=== PATIENT | male | born 1950 | race Caucasian/White ===

== ENCOUNTER → 2016-09-02 | Day surgery (SDC) | payer MEDICARE, OTHER ==
[~2016-09-02] VITALS: Ht 167.6 cm; Wt 83.0 kg
[~2016-09-02] MED LIST: COREG12.5 MG PO; COUMADIN ** IA5 MG PO; CPAP INH; IRON325 M1 PO; LEVEMIR100 UNIT/1 SUB-Q; NORCO 5-325 TA1 EACH PO; NORVASC5 MG PO; NYSTATIN1 EAC1 TOP; PATADAY2.5 ML OPHTH; PRILOSEC20 MG PO; TIMOPTIC XE 0.5%5 ML OPHTH; VITAMIN B-1000 MCG/M SUB-Q; VITAMIN D1000 UNIT PO
--- NOTE | ~2016-09-02 | OR ---
PATIENT'S NAME: LOLY CAMPOS [facility] AGE: 66 Y [address] ROOM: [place] [id number] LOCATION: [facility] – [place] ADMIT DATE: 09/02/2016 OR/Procedure Report DISCHARGE DATE: FAMILY PHYSICIAN: Serge Marin MD ATTENDING PHYSICIAN: CLINTON CRESPO SURGEON: Clinton Crespo MD BLUEPRINT CLERK: DATE OF PROCEDURE: 09/02/2016 PREOPERATIVE DIAGNOSIS: End-stage renal disease. POSTOPERATIVE DIAGNOSIS: End-stage renal disease. PROCEDURE: Left arm brachiocephalic AV fistula. FLIGHT INFORMATION EXPEDITER: OR staff. ANESTHESIA: General. ESTIMATED BLOOD LOSS: 10 mL. OPERATIVE FINDINGS: Good thrill and bruit in the fistula. Strong radial and ulnar signal at the end of the case. DESCRIPTION OF PROCEDURE: The patient was brought to the operating room, placed supine on the operating table, prepped and draped in a sterile manner. Preoperative time-out was performed. We made a standard incision 2 cm proximal to the antecubital fossa, dissected down the fascia, incised the fascia in a longitudinal manner. Dissected out the brachial artery. Dissected out the cephalic vein in a 360-degree fashion as well. We then placed a large clip distally and transected the vein. We gave 5000 units of heparin. We made a 4 mm arteriotomy on the brachial artery and then did a standard 6-0 Prolene anastomosis from the vein to the artery. We then removed the clamp. There was excellent flow into the fistula. There was a strong radial and ulnar signal. There was a good bruit signal up the arm. We reversed heparin with protamine. Deep layers were closed with 2-0 and 3-0 Vicryl. Skin was closed with running 4-0 Monocryl. The patient tolerated the procedure well and transferred to the recovery room and home later that day. CLINTON CRESPO MD FKM/modl PATIENT'S NAME: LOLY CAMPOS [facility] AGE: 66 Y [address] ROOM: [place] [id number] LOCATION: [facility] [place] ADMIT DATE: 09/02/2016 OR/Procedure Report DISCHARGE DATE: FAMILY PHYSICIAN: Serge Marin MD ATTENDING PHYSICIAN: CLINTON CRESPO /[id number] d: 09/02/16 2220 t: 09/06/16 1029, OPERATIVE SUMMARY
[2016-09-02 06:16] LABS: BASOPHIL % 0.4 %; EOSINOPHIL # 0.5 K/uL (0.0-0.5); EOSINOPHIL % 5.5 %; HEMATOCRIT 25.3 % (37.0-53.0); HEMOGLOBIN 8.1 g/dL (11.0-16.0); IMMATURE GRANULOCYTE # 0.3 K/uL (0.0-0.3); IMMATURE GRANULOCYTE % 3.8 %; LYMPHOCYTE # 1.6 K/uL (0.8-4.0); LYMPHOCYTE % 17.8 %; MCH 31.4 pg (27.0-34.0); MCV 98.1 fl (83.0-98.0); MONOCYTE # 0.6 K/uL (0.0-1.0); MONOCYTE % 6.7 %; MPV 8.9 fl (9.4-12.4); NEUTROPHIL # (ANC) 5.9 K/uL (1.4-9.0); NEUTROPHIL % 65.8 %; NRBC % 0.2 /100WBC (0-0.00); PLATELET COUNT 237 K/uL (150-450); RBC 2.58 M/uL (3.50-5.50); RDW-CV 15.8 % (11.9-14.6); WBC 8.9 K/uL (4.0-11.0)
[2016-09-02 06:24] LABS: INR - (THERAPEUTIC) 1.08 (0.92-1.07); PROTIME 11.4 SECONDS (9.8-11.4)
[2016-09-02 06:32] LABS: ALBUMIN 2.9 gm/dL (3.5-5.0); ANION GAP 7.8 (10.0-19.0); CALCIUM 8.1 mg/dL (8.5-10.5); CREATININE 2.6 mg/dL (0.6-1.3); POTASSIUM 3.8 mMol/L (3.7-5.1); TOTAL BILIRUBIN 0.4 mg/dL (0.0-1.5); TOTAL PROTEIN 6.9 g/dL (6.0-8.4)
== END | disposition disaster alternative care site (69) ==
LOC: GPOC 08-30 10:00 → GPCU 05:10 → GSDC 05:10
PROVIDERS: Surgery Vascular Surgery
PROC: 03180AD Bypass Left Brachial Artery to Upper Arm Vein with Autologous Arterial Tissue, Open Approach (ICD-10-PCS; principal; 2016-09-02)
DX: N18.6 End stage renal disease (principal); E10.22 Type 1 diabetes mellitus with diabetic chronic kidney disease; I12.0 Hypertensive chronic kidney disease with stage 5 chronic kidney disease or end stage renal disease; M19.90 Unspecified osteoarthritis, unspecified site; K21.9 Gastro-esophageal reflux disease without esophagitis; J44.9 Chronic obstructive pulmonary disease, unspecified; G47.30 Sleep apnea, unspecified; E78.5 Hyperlipidemia, unspecified; Z99.2 Dependence on renal dialysis; F17.200 Nicotine dependence, unspecified, uncomplicated; Z79.899 Other long term (current) drug therapy; Z79.01 Long term (current) use of anticoagulants; Z99.89 Dependence on other enabling machines and devices; Z98.890 Other specified postprocedural states
CPT/HCPCS: J0690; J1644; J2001; J2720; J7030